=== PATIENT | female | born 1940 | race Caucasian/White ===

== ENCOUNTER 2016-12-29 07:15 | Day surgery (SDC) | payer MEDICARE ==
--- NOTE | ~2016-12-29 | EGD ---
EGD REPORT [id number] [id number] NAME: RAMON DANIELS : [birth year] STATUS : REG [facility] – [place] PAT#: [id number] AGE: 76 ADM/REG DATE : 12/29/16 MR#: [id number] REPORT SERV DATE: 12/29/16 DICTATED BY: DATE: REPORT STATUS : Draft TRANSCRIBED BY: [facility] DATE: 12/29/16 [facility] Patient Name: Ramon Daniels Date of : 1940 Attending MD: CARLOS ZIMMERMAN MD Procedure Date No Time: 12/29/2016 Procedure: Colonoscopy Indications: High risk colon cancer surveillance: Personal history adenoma >= 10 mm in size, High risk colon CA surveillance: Personal history adenoma with villous component, High risk colon cancer surveillance: Personal history of sessile serrated colon polyp (10 mm or greater in size) Referring MD: AIDA LANGE Medicines: Monitored Anesthesia Care Complications: No immediate complications. Procedure: Pre-Anesthesia Assessment: - ASA Grade Assessment: III - A patient with severe systemic disease. After I obtained informed consent, the scope was passed under direct vision. Throughout the procedure, the patient's blood pressure, pulse, and oxygen saturations were monitored continuously. The PCF [id number] was introduced through the anus and advanced to the cecum, identified by appendiceal orifice and ileocecal valve. The colonoscopy was performed without difficulty. The patient tolerated the procedure well. The quality of the bowel preparation was excellent. Findings: The perianal and digital rectal examinations were normal. The colon (entire examined portion) appeared normal with the exception of a few small diverticuli in the sigmoid colon. There is no endoscopic evidence of diverticula, inflammation, mass, ulcerations or angioectasia in the entire colon. Internal hemorrhoids were found during retroflexion and were Grade I (internal hemorrhoids that do not prolapse). No additional abnormalities were found on retroflexion. Impression: - The entire examined colon is normal except few small diverticuli in sigmoid colon. - Internal hemorrhoids. Recommendation: - Patient has a contact number available for emergencies. The signs and symptoms of potential delayed EGD REPORT [address] [id number] NAME: RAMON DANIELS : [birth year] STATUS : REG [facility] – [place] PAT#: [id number] AGE: 76 ADM/REG DATE : 12/29/16 MR#: [id number] REPORT SERV DATE: 12/29/16 DICTATED BY: DATE: REPORT STATUS : Draft TRANSCRIBED BY: [employer] DATE: 12/29/16 complications were discussed with the patient. Return to normal activities tomorrow. Written discharge instructions were provided to the patient. - High fiber diet. - Discharge patient to home. - Continue present medications. - Repeat colonoscopy in 5 years for surveillance. Procedure Code(s): --- Professional --- G0105, Colorectal cancer screening; colonoscopy on individual at high risk Diagnosis Code(s): --- Professional --- K64.0, First degree hemorrhoids Z86.010, Personal history of colonic polyps CPT copyright 2013 [employer]. All rights reserved. The codes documented in this report are preliminary and upon installer helper review may be revised to meet current compliance requirements. CARLOS ZIMMERMAN MD 12/29/2016 12:42 PM This report has been signed electronically. Number of Addenda: 0 Note Initiated On: 12/29/2016 8:17 AM Scope Withdrawal Time 0 hours 10 minutes 51 seconds [id number] [id number]
[~2016-12-29 07:15] MED LIST: ACET500CAP PO; ADVAIR HFA; ADVAIR115P INH; ADVAIR45P INH; AMARYL4 PO; AMITIZA24 PO; ANUSOL HC SUPP1 SUPP PR; ATEN25 PO; AVINZA30 PO; B-12 IM; B121000P IM; BACDS PO; BENTYL10 PO; BUSPAR10 PO; BYETTA10 SC; CELEXA20 PO; CENTRUM PO; CIMETIDINE400 MG PO; CLIDINIUM PO; CONSTULOSE PO; CYMBALTA60 PO; DIOV160 PO; DIOV80 PO; DOX10 PO; DSS PO; ESTROGEN IM; ESTROGEN INJ; EVOXAC30 MG PO; FLONASE NAS; FLOVENT DISK50 MCG INH; GLUCAGEN IM; GLUCOSE PO; HUMALOG SC; HUMALOGPEN SC; HYDROCORTISONE EX; INSULIN ASPART SC; K500 PO; KDUR20 PO; KLONO1 PO; KLONO2 PO; KLONO5 PO; KLONOPIN WAF1 MG PO; KLOR-CON M2020 MEQ PO; L40 PO; L5 PO; L80 PO; LANTUS SC; LAX PO; LEVAQUIN750 MG PO; LEVOTHYROXIN50 MCG PO; LIBRAX PO; LIQUID TEARS OPH; LUNESTA2 M1 PO; Lasix; MAGNESIUM OTC PO; METHOC500B PO; METHOC750B PO; MIRALAX POWDER1 PKT PO; MIRALAXPKT PO; MORPHINE 15MG PO; MSCONT15 PO; MSIMMR15 PO; MSIMMREL PO; MUCOUS RELIEF; MUCUS RELIEF OR; MULTIVIT/MIN PO; MULTIVITAMI1 PO; MYTAB GAS80 MG PO; NEUR100 PO; NEUR600 PO; NEUR800 PO; NOVOLOG SC; NYSTOP100000 MG TOP; OCUVITE PO; ORAMORPH SR30 MG PO; P5 PO; PR25 PO; PRAMOXINE EX; PRILOSEC40 MG PO; PROAIR HFA INH; PURINETHOL50 MG PO; QUESLITE PO; QUESTRAN PO; QUESTRAN4 GM PO; SAVELLA50 MG PO; SEROQUEL50 MG PO; SINGULAIR1 PO; SPIRO50 PO; STOOL SOFTEN100 MG PO; STOOL SOFTENER; STOOL SOFTNER PO; SYMBICORT 160/41 INH INH; SYN125 PO; SYNTHROID175 MCG PO; SYNTHROID200 MCG PO; TESSALON200 MG PO; TOUJEO SC; TRULICITY0.75 MG/0. SQ; V5 PO; VIST25 PO; VITAMIN B-12 INJ; VITAMIN D1000 UNI1 PO; Vitamin D PO; XOPENEX HFA INH; ZITH250 PO; ZOFRAN ODT4 MG PO; ZOL100 PO; [UNRECOGNIZED DRUG - OTHER]; [UNRECOGNIZED DRUG - OTHER] PO; [UNRECOGNIZED DRUG - OTHER] PR; [UNRECOGNIZED DRUG - OTHER] TOP
[2017-05-15] MEDS ORDERED: LYRICA200 MG PO (16:19)
[2017-05-15] MEDS ORDERED: ZOL100 PO (16:33)
[2017-05-15] MEDS ORDERED: MUCUSRELIEF PO (16:34)
[2017-05-15] MEDS ORDERED: STOOL SOFTEN240 MG PO (16:35)
[2017-05-18] MEDS ORDERED: FLORASTOR250 MG PO (11:15)
[2017-05-18] MEDS ORDERED: SENTAB PO (11:16)
[2017-05-18] MEDS ORDERED: AMPI500 PO (11:17)
[2017-06-13] MEDS ORDERED: AMOXIL875 PO (14:44)
[2017-06-13] MEDS ORDERED: VIBRATAB100 MG PO (14:46)
[2017-06-13] MEDS ORDERED: PROVHFA INH (14:53)
[2017-06-13] MEDS ORDERED: LYRICA200 MG PO (14:55)
[2017-06-13] MEDS ORDERED: ATV.5 PO (14:56)
[2017-06-20] MEDS ORDERED: KLONO5 PO (17:51)
[2017-06-20] MEDS ORDERED: TOUJEO SC (17:52)
[2017-06-20] MEDS ORDERED: ZOL100 PO (17:52)
[2017-06-20] MEDS ORDERED: TRULICITY0.75 MG/0. SQ (17:53)
[2017-06-20] MEDS ORDERED: HUMALOGPEN SC ×2 (17:53→18:03)
[2017-06-20] MEDS ORDERED: MSIMMREL PO (17:54)
[2017-06-20] MEDS ORDERED: LYRICA200 MG PO (17:54)
[2017-06-20] MEDS ORDERED: MSCONT15 PO (17:55)
[2017-06-20] MEDS ORDERED: QUESLITE PO (17:56)
[2017-06-20] MEDS ORDERED: LEVOTHYROXIN200 MCG PO (17:57)
[2017-06-20] MEDS ORDERED: DSS PO (17:57)
[2017-06-20] MEDS ORDERED: PRILOSEC40 MG PO (17:57)
[2017-06-20] MEDS ORDERED: FLONASE NAS (17:57)
[2017-06-20] MEDS ORDERED: SENTAB PO (17:58)
[2017-06-20] MEDS ORDERED: SINGULAIR1 PO (17:59)
[2017-06-20] MEDS ORDERED: LEVOTHYROXIN125 MCG PO (17:59)
[2017-06-20] MEDS ORDERED: AMITIZA24 PO (17:59)
[2017-06-20] MEDS ORDERED: SPIR100 PO (18:00)
[2017-06-20] MEDS ORDERED: EVOXAC30 MG PO (18:00)
[2017-06-20] MEDS ORDERED: CIMETIDINE400 MG PO (18:00)
[2017-06-20] MEDS ORDERED: L80 PO (18:01)
[2017-06-20] MEDS ORDERED: VITAMIN D31000 UNIT PO (18:01)
[2017-06-20] MEDS ORDERED: ADVAIR115P INH (18:01)
[2017-06-20] MEDS ORDERED: MAGOX4 PO (18:02)
[2017-06-20] MEDS ORDERED: MULTIPLE VIT PO (18:02)
[2017-06-20] MEDS ORDERED: OCUVITE PO (18:02)
[2017-06-20] MEDS ORDERED: PROVHFA INH (18:04)
== END 2016-12-29 23:59 | disposition home or self-care (01) ==
LOC: DMU 07:15
PROVIDERS: Internal Medicine Gastroenterology
PROC: 0DJD8ZZ Inspection of Lower Intestinal Tract, Via Natural or Artificial Opening Endoscopic (ICD-10-PCS; principal; 2016-12-29 09:00)
DX: K64.0 First degree hemorrhoids (principal); E66.01 Morbid (severe) obesity due to excess calories; J45.909 Unspecified asthma, uncomplicated; G47.33 Obstructive sleep apnea (adult) (pediatric); K74.60 Unspecified cirrhosis of liver; E03.9 Hypothyroidism, unspecified; G51.0 Bell's palsy; M19.90 Unspecified osteoarthritis, unspecified site; M79.7 Fibromyalgia; E11.40 Type 2 diabetes mellitus with diabetic neuropathy, unspecified; F32.9 Major depressive disorder, single episode, unspecified; F41.9 Anxiety disorder, unspecified; D64.9 Anemia, unspecified; R25.1 Tremor, unspecified; Z88.5 Allergy status to narcotic agent; Z86.010 Personal history of colon polyps; Z79.899 Other long term (current) drug therapy; Z79.4 Long term (current) use of insulin; Z90.89 Acquired absence of other organs; Z90.49 Acquired absence of other specified parts of digestive tract; Z90.710 Acquired absence of both cervix and uterus; Z98.41 Cataract extraction status, right eye; Z98.42 Cataract extraction status, left eye
CPT/HCPCS: 82962